=== PATIENT | female | born 1965 | race Caucasian/White ===

== ENCOUNTER → 2017-05-25 | Day surgery (SDC) | payer BC ==
[~2017-05-25] VITALS: Ht 162.6 cm; Wt 74.8 kg
[~2017-05-25] MED LIST: OMEPRAZOLE40 MG PO; PHARMASSURE L-500 MG PO; PROTONIX 40MG T40 MG PO; RESTASIS0.05% OP; RIZATRIPTAN BEN10 MG PO; SINGULAIR10 MG PO; SKELAXIN 800MG800 MG PO; TOPIRAMATE 100100 M1 PO; VALACYCLOVIR H500 M1 PO
[2017-05-25 14:15] VITALS: BP 148/74
[2017-05-25 14:38] VITALS: BP 148/74; BP 161/92
[2017-05-25 14:53] VITALS: BP 153/84
--- NOTE | 2017-05-25 14:59 | Procedure Note ---
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 Lumbar spondylosis. Post-procedure diagnosis: Same Indications for procedure: Very pleasant 52-year-old white female the comes our procedural clinic today for her initial RIGHT side at L4-5, L5-S1 RFA. Patient describes her low back pain as constant, dull, aching. Procedure detail: The procedure was explained to the patient in detail. Consent form was signed. Patient was taken back to the procedure room, where noninvasive monitors were placed. This included noninvasive blood pressure cuff and pulse oximeter. The patient was placed prone on the C-arm table. The area over the lumbar spine was cleansed using chlorhexidine as cleansing solution. Using fluoroscopy guidance, markers were placed over the pedicle at the L4-5, L5-S1. 1% Lidocaine was used to anesthetize the skin with a 25-gauge needle at these markers. Using fluoroscopy guidance the radiofrequency probe was used to access the superior margin of the pedicle at L4-5, L5-S1. After negative motor stimulation, 2 mls of 0.25% Marcaine and 10 mg of Depo-Medrol were injected into each needle. We then proceeded with radial frequency ablation at all 3 levels at 80 degrees Celsius 60 seconds. After the lesion was formed the needles were withdrawn. Band-Aids were applied. The patient tolerated the procedure without difficulty. There were no complications Plan and disposition: Patient was reevaluated 10 minutes post procedure. She is doing very well. She' ll return to see us in pain clinic further evaluation. at [id number]
== END ==
LOC: PM 14:01
PROC: 3E0T3TZ Introduction of Destructive Agent into Peripheral Nerves and Plexi, Percutaneous Approach (ICD-10-PCS; principal; 2017-05-25)
PROC: BR161ZZ Fluoroscopy of Lumbar Facet Joint(s) using Low Osmolar Contrast (ICD-10-PCS; 2017-05-25)
DX: M51.36 Other intervertebral disc degeneration, lumbar region (principal); M47.896 Other spondylosis, lumbar region
CPT/HCPCS: J1030

== ENCOUNTER → 2017-06-08 | Day surgery (SDC) | payer BC ==
[~2017-06-08] VITALS: Ht 162.6 cm; Wt 74.8 kg
[2017-06-08 13:17] VITALS: BP 135/75
[2017-06-08 13:33] VITALS: BP 135/75; BP 150/82
[2017-06-08 13:48] VITALS: BP 146/90
--- NOTE | 2017-06-08 13:52 | Procedure Note ---
Procedure detail Date of procedure: 06/08/17 Anesthesiologist: Gwyn Knowles Complications: None Pre-procedure diagnosis: Degenerative disease lumbar spine multiple levels. Lumbar facet arthropathy. Lumbar spondylosis Post-procedure diagnosis: Same. Indications for procedure: Very pleasant 52-year-old white female the comes our pain clinic today for a LEFT radial frequency ablation L4-5, L5-S1. Patient is status post RIGHT side radiofrequency ablation same levels. Procedure detail: The procedure was explained to the patient in detail. Consent form was signed. Patient was taken back to the procedure room, where noninvasive monitors were placed. This included noninvasive blood pressure cuff and pulse oximeter. The patient was placed prone on the C-arm table. The area over the lumbar spine was cleansed using chlorhexidine as cleansing solution. Using fluoroscopy guidance, markers were placed over the pedicle at the LEFT L4- 5, L5-S1 as well as over the [sacral ala]. 1% Lidocaine was used to anesthetize the skin with a 25-gauge needle at these markers. Using fluoroscopy guidance the radiofrequency probe was used to access the superior margin of the pedicle at LEFT L4-5, L5-S1. After negative motor stimulation, 2 mls of 0.25% Marcaine and 10 mg of Depo-Medrol were injected into each needle. We then proceeded with radial frequency ablation at all 3 levels at 80 degrees Celsius 60 seconds. After the lesion was formed the needles were withdrawn. Band-Aids were applied. The patient tolerated the procedure without difficulty. There were no complications Plan and disposition: Patient was reevaluated 10 minutes post procedure. She's doing very well. She'll return to see us in pain clinic for further evaluation. at [id number]
== END ==
LOC: PM 13:05
PROC: 3E0T3TZ Introduction of Destructive Agent into Peripheral Nerves and Plexi, Percutaneous Approach (ICD-10-PCS; principal; 2017-06-08)
PROC: BR161ZZ Fluoroscopy of Lumbar Facet Joint(s) using Low Osmolar Contrast (ICD-10-PCS; 2017-06-08)
DX: M51.36 Other intervertebral disc degeneration, lumbar region (principal); M12.88 Other specific arthropathies, not elsewhere classified, other specified site; M47.896 Other spondylosis, lumbar region

== ENCOUNTER 2017-07-27 14:49 | Day surgery (SDC) | payer BC ==
[~2017-07-27] VITALS: Ht 162.6 cm; Wt 77.1 kg
[2017-07-27 15:04] VITALS: BP 115/71
[2017-07-27 15:28] VITALS: BP 115/71
[2017-07-27 15:31] VITALS: BP 131/90
--- NOTE | 2017-07-27 15:37 | Procedure Note ---
Procedure detail Date of procedure: 07/27/17 Anesthesiologist: Gwyn Knowles Complications: None Pre-procedure diagnosis: Bilateral sacroiliitis Post-procedure diagnosis: Same Indications for procedure: Very pleasant 52-year-old white female the comes our procedure today for bilateral SI joint injections. She reports bilateral hip and buttock pain that she describes as constant, dull, sharp, stabbing. She rates pain 8/10. Procedure detail: Procedure: Bilateral sacroiliac joint injections under fluoroscopy Informed consent was obtained and the risks and benefits of the procedure were explained to the patient.~ The patient was taken to the procedure room and noninvasive monitors were placed including a noninvasive blood pressure cuff and pulse oximeter.~ The patient was placed prone on the procedure table. Both hips were cleansed using Betadine as a cleansing solution. C-arm fluoroscopy was used to view the right sacroiliac joint.~ The skin and subcutaneous tissues were anesthetized using lidocaine 1.5% and a 25-gauge needle.~ After this, a 22-gauge spinal needle was inserted under fluoroscopic guidance into the inferior aspect of the right sacroiliac joint.~ Omnipaque dye was injected and good spread was seen throughout the joint.~ After this, approximately 5 mL of bupivacaine, 0.25% and Depo-Medrol, 40 mg was incrementally injected into the right sacroiliac joint. We then moved to the left sacroiliac joint.~ The skin and subcutaneous tissues were anesthetized using lidocaine 1.5% and a 25-gauge needle.~ After this, a 22- gauge spinal needle was inserted under fluoroscopic guidance into the inferior aspect of the left sacroiliac joint.~ Omnipaque dye was injected and good spread was seen throughout the joint. After this, approximately 5 mL of bupivacaine, 0.25% and Depo-Medrol, 40 mg was incrementally injected into the left sacroiliac joint.~ The patient tolerated the procedure well with no complications. The patient was observed in the Pain Clinic and then was discharged home neurologically intact. Plan and disposition: Patient was evaluated 10 minutes post procedure. She reports 100 percent improvement terms her bilateral hip and buttock pain. at [id number]
[2017-07-27 15:40] VITALS: BP 130/75
== END 2017-07-27 15:42 | disposition home or self-care (01) ==
LOC: PM 14:49
PROC: 3E0U33Z Introduction of Anti-inflammatory into Joints, Percutaneous Approach (ICD-10-PCS; principal; 2017-07-27)
PROC: 3E0U3BZ Introduction of Anesthetic Agent into Joints, Percutaneous Approach (ICD-10-PCS; 2017-07-27)
DX: M46.1 Sacroiliitis, not elsewhere classified (principal)
CPT/HCPCS: G0260; J1030; Q9966